=== PATIENT | female | born 1995 | race Native Hawaiian/Other Pacific Islander ===

== ENCOUNTER 2017-03-03 16:31 | Emergency (ER) | payer OTHER ==
[~2017-03-03] VITALS: Ht 162.6 cm; Wt 53.5 kg
[2017-03-03 16:34] VITALS: TEMP 98.3
[2017-03-03 16:54] LABS: PLATELET COUNT 201 K/uL (152-353)
[2017-03-03 17:01] LABS: POTASSIUM 3.6 mmol/L (3.6-5.2); SODIUM 137 mmol/L (136-145)
[2017-03-03 19:09] VITALS: BP 146/82
== END 2017-03-03 19:11 | disposition home or self-care (01) ==
LOC: ED 16:31
PROVIDERS: Family Medicine
DX: T78.2XXA Anaphylactic shock, unspecified, initial encounter (principal); L50.9 Urticaria, unspecified
CPT/HCPCS: 36415; 80053; 85027; 96360; 96372; 99284; J0171; J1200; J2550; J2930

== ENCOUNTER 2018-04-06 16:14 | Emergency (ER) | payer OTHER ==
[~2018-04-06] VITALS: Ht 162.6 cm; Wt 53.1 kg
[2018-04-06 17:27] VITALS: BP 113/75; TEMP 98.1
== END 2018-04-06 17:30 | disposition home or self-care (01) ==
LOC: ED 16:14
DX: T78.1XXA Other adverse food reactions, not elsewhere classified, initial encounter (principal)
CPT/HCPCS: 96372; 99282; J2930

== ENCOUNTER 2018-12-23 14:08 | Outpatient (CLI) | payer BC | END 2018-12-23 22:50 | disposition home or self-care (01) | LOC: MRI 14:08 | DX: E22.1 Hyperprolactinemia (principal) | CPT/HCPCS: A9576 ==

== ENCOUNTER 2019-06-30 09:11 | Outpatient (CLI) | payer BC | END 2019-06-30 18:59 | disposition home or self-care (01) | LOC: LABW 09:11 | DX: K29.70 Gastritis, unspecified, without bleeding (principal) | CPT/HCPCS: 36415; 86677 ==

== ENCOUNTER 2019-07-08 11:31 | Emergency (ER) | payer BC ==
[~2019-07-08] VITALS: Ht 162.6 cm; Wt 53.1 kg
[2019-07-08 11:46] VITALS: TEMP 98.1
[2019-07-08 12:14] LABS: PLATELET COUNT 141 K/uL (152-353)
[2019-07-08 12:16] LABS: POTASSIUM 4.2 mmol/L (3.6-5.2)
[2019-07-08 15:25] VITALS: BP 106/70
== END 2019-07-08 15:31 | disposition home or self-care (01) ==
LOC: ED 11:31
PROVIDERS: Emergency Medicine
DX: B96.81 Helicobacter pylori [H. pylori] as the cause of diseases classified elsewhere (principal); K27.9 Peptic ulcer, site unspecified, unspecified as acute or chronic, without hemorrhage or perforation
CPT/HCPCS: 80053; 85027; 96360; 96375; 99284; J1885; J2405; Q9963

== ENCOUNTER 2019-10-09 15:26 | Outpatient (CLI) | payer BC | END 2019-10-09 19:41 | disposition home or self-care (01) | LOC: LAB 15:26 | DX: Z32.01 Encounter for pregnancy test, result positive (principal) | CPT/HCPCS: 84702 ==

== ENCOUNTER 2020-05-20 10:37 | Outpatient (CLI) | payer BC | END 2020-05-20 23:56 | disposition home or self-care (01) | LOC: LABW 10:37 | DX: Z34.83 Encounter for supervision of other normal pregnancy, third trimester (principal) | CPT/HCPCS: 36415; 86592; 86701; 86702; 87389 ==

== ENCOUNTER 2021-02-10 09:18 | Outpatient (CLI) | payer BC | END 2021-02-10 19:56 | disposition home or self-care (01) | LOC: LAB 09:18 | PROVIDERS: ATTEND Nurse Practitioner Family | DX: Z01.818 Encounter for other preprocedural examination (principal); Z11.52 Encounter for screening for COVID-19 | CPT/HCPCS: 87635; U0003 ==

== ENCOUNTER 2022-02-22 15:08 | Outpatient (CLI) | payer BC | END 2022-02-22 19:18 | disposition home or self-care (01) | LOC: LABW 15:08 | PROVIDERS: ATTEND Nurse Practitioner Primary Care | DX: R19.7 Diarrhea, unspecified (principal) | CPT/HCPCS: 83630; 87015; 87045; 87324; 87328; 87329; 87449; 87899 ==